=== PATIENT | male | born 1985 | race Caucasian/White ===

== ENCOUNTER 2017-02-27 11:12 | Emergency (ER) | payer BC ==
[2017-02-27] MEDS: DIPH,PERTUSS(ACELL),TET VAC/PF 0.5 ML DISP.SYRIN IM ONE (11:32)
[2017-02-27] MEDS ORDERED: traMADol HCL 50 MG TABLET ONE (11:44)
[2017-02-27] MEDS: traMADol HCL 50 MG TABLET PO ONE (11:49)
[2017-02-27 11:52] VITALS: BP 128/82
--- NOTE | 2017-02-27 11:52 | ED Physician Documentation ---
General Adult - HISTORIAN Historian: patient - HPI Stated Complaint: Laceration Chief Complaint: Laceration/Recheck/Suture Additional Information: aluminum case fell rt lat head w 2/3 cm lac. pt said bled excessive nurse cleaned up the blood Onset: hours (1) Timing: still present Severity: mild, moderate Further Comments: yes (cleansed w/ both shur clens and betadine exp for body approx w/ 3 stapoles) - ROS CONST: no problems EYES/ENT: none CVS/RESP: none GI/: none - PAST HX Past History: none Surgeries/Procedures: other (t and a) Immunizations: denies: UTD Allergies/Adverse Reactions: Allergies Allergy/AdvReac Type Severity Reaction Status Date / Time ceftriaxone sodium Allergy Severe Hives Verified 02/27/17 11:23 [From Rocephin] Home Medications: Ambulatory Orders Medication Instructions Recorded NK [NK] 02/27/17 - SOCIAL HX Smoking History: greater than 1 pack/day Alcohol Use: occasionally Drug Use: none - FAMILY HX Family History: No - VITAL SIGNS Vital Signs: Vital Signs Temp Pulse Resp BP Pulse Ox 98.2 F 65 18 135/91 96 02/27/17 11:24 02/27/17 11:24 02/27/17 11:24 02/27/17 11:24 02/27/17 11:24 - REVIEWED ASSESSMENTS Nursing Assessment Reviewed: Yes Vitals Reviewed: Yes Procedures Wound Location: head Wound's Depth, Shape: superficial, linear Wound Explored: no foreign body removed Betadine Prep?: Yes Wound Repaired With: lola (three-pt elected w/o anesthetic) Sterile Dressing Applied?: No ED Results Lab/Radiology - Orders Orders: ED Orders Category Date Time Status Diph,Pertuss(Acell),Tet Vac/Pf [Adacel] Med 02/27/17 11:41 Discontinued 0.5 ml IM .ONCE ONE traMADol HCL [Ultram] Med 02/27/17 11:43 Discontinued 50 mg PO NOW ONE General Adult Physical Exam - PHYSICAL EXAM GENERAL APPEARANCE: mild distress EENT: eye inspection normal NECK: normal inspection RESPIRATORY: no resp distress, chest non-tender, breath sounds normal CVS: reg rate & rhythm ABDOMEN: soft, non-tender SKIN: warm/dry, normal color. No: cyanosis, diaphoresis, jaundice, mottled EXTREMITIES: non-tender NEURO: oriented X3, motor nml, sensation nml, mood/affect nml, cognition normal Discharge Clincal Impression: Scalp laceration Referrals: Primary Doctor,No [Primary Care Provider] - 2 Days Home Medications: Ambulatory Orders NK [NK] 02/27/17 Comments: lola out 5-6 days Condition: Good Disposition: 01 HOME, SELF-CARE Decision to Admit: NO Decision Time: 11:51
== END 2017-02-27 11:51 | disposition home or self-care (01) ==
LOC: SUPCPDRO 11:12 → ED 11:12
DX: S01.01XA Laceration without foreign body of scalp, initial encounter (principal); X58.XXXA Exposure to other specified factors, initial encounter; Y93.9 Activity, unspecified; Y99.9 Unspecified external cause status
CPT/HCPCS: 12002; 90471; 90715; 99283

== ENCOUNTER 2017-03-07 14:49 | Emergency (ER) | payer BC ==
[2017-03-07] MEDS ORDERED: fentaNYL CITRATE/PF 100 MCG/ 2ML AMP IVP ONE ×2 (15:04→15:45)
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
[2017-03-07 16:08] VITALS: BP 119/91
== END 2017-03-07 16:02 | disposition home or self-care (01) ==
LOC: ED 14:49
DX: T22.212A Burn of second degree of left forearm, initial encounter (principal); T31.0 Burns involving less than 10% of body surface; T79.9XXA Unspecified early complication of trauma, initial encounter; X16.XXXA Contact with hot heating appliances, radiators and pipes, initial encounter; Y93.9 Activity, unspecified; Y99.9 Unspecified external cause status
CPT/HCPCS: J3010 ×2; 96374; 96376; 99283; S1016

== ENCOUNTER 2017-06-24 13:34 | Emergency (ER) | payer SELFPAY ==
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
[2017-06-24] MEDS: DEXAMETHASONE SOD PHOS 4 MG/ML VIAL IM ONE (14:19)
[2017-06-24] MEDS: ORPHENADRINE CITRATE 60 MG/2ML IM ONE (14:20)
[2017-06-24] MEDS: KETOROLAC TROMETHAMINE 30 MG/1ML VIAL IM ONE (14:20)
[2017-06-24 14:40] VITALS: BP 133/86
== END 2017-06-24 14:37 | disposition home or self-care (01) ==
LOC: ED 13:34
DX: M60.9 Myositis, unspecified (principal); S76.812A Strain of other specified muscles, fascia and tendons at thigh level, left thigh, initial encounter; S13.4XXA Sprain of ligaments of cervical spine, initial encounter; V87.7XXA Person injured in collision between other specified motor vehicles (traffic), initial encounter; Y93.9 Activity, unspecified; Y99.9 Unspecified external cause status
CPT/HCPCS: J1100; J1885; J2360; 96372; 99283

== ENCOUNTER 2017-07-02 11:45 | Outpatient (CLI) | payer BC ==
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
== END 2017-07-02 11:46 ==
LOC: LAB 11:45 → RAD 11:46
PROVIDERS: ATTEND Family Medicine
DX: M54.5 Low back pain (principal)
CPT/HCPCS: 72100

== ENCOUNTER 2017-12-30 12:17 | Outpatient (CLI) | payer OTHER ==
--- NOTE | 2017-12-30 18:50 | Diagnostic Imaging Report ---
LOBO MONROE [facility] [address] [facility] [address] [place] [address]. [id number] Report Submission Date: Dec 30, 2017 12:51:35 PM CDT Patient Study Name: CAIN BRANDT Date: Dec 30, 2017 12:30:08 PM CDT Modality Type: CT\SR Gender: M Description: CT BRAIN W/O CONTRAST : 83 Institution: [facility] Physician: LOBO MONROE Examination: CT head without contrast History: CT HEAD W/O, LEFT SIDED HEADACHES FOR SEVERAL MONTHS, WORSENING. NO KNOWN INJURY (Hx) Comparison exam: None available Technique: Noncontrast head CT protocol. Findings: Ventricles and sulci are appropriate for patient age. Cerebrocerebellar parenchyma demonstrates normal attenuation. No evidence for parenchymal hemorrhage. No evidence for mass or mass effect. No midline shift. No extra axial fluid collections. Partial visualization of the paranasal sinuses , mastoid air cells, orbits, skull and scalp without gross irregularity. Impression: No acute parenchymal process. No hemorrhage. Electronically signed on Dec 30, 2017 12:51:35 PM CDT by: Boyd CARRILLO
== END 2017-12-30 12:19 ==
LOC: RAD 12:17
PROVIDERS: ATTEND Family Medicine
DX: R51 Headache (principal)
CPT/HCPCS: 70450

== ENCOUNTER 2018-08-30 12:17 | Outpatient (CLI) | payer OTHER ==
[2018-08-30 13:39] LABS: CANNABINOIDS NEGATIVE ng/mL (< 50)
[2018-08-30 13:40] LABS: METHYLENEDIOXYMETHAMPHETAMINE NEGATIVE ng/mL (<500)
== END 2018-08-30 12:19 ==
LOC: LAB 12:17
PROVIDERS: ATTEND Family Medicine
DX: Z02.83 Encounter for blood-alcohol and blood-drug test (principal)
CPT/HCPCS: 80377; G0481

== ENCOUNTER 2019-08-16 07:33 | Emergency (ER) | payer OTHER ==
--- NOTE | 2019-08-16 07:38 | ED Physician Documentation ---
Chest Pain - HISTORIAN Historian: patient - HPI Stated Complaint: chest pain Chief Complaint: Chest Pain Onset: hours (2) Timing: sudden onset Duration: constant Last known Well Date: 08/16/19 Last Known Well Time: 05:00 Context: rest Severity: moderate Quality: pressure, burning, aching, sharp Chest Pain Radiation: other (he has pain on right chest wrapping around to back and then epigastric pain - Denies any recent injury ) Chest Pain Signs/Symptoms: nausea, diaphoresis Worsened By: change in position Relieved By: other (sitting/standing ) Further Comments: yes (He reports starting on Clindamycin a few days ago for a dental infection. He did take it last night around 11 pm. And he did have some allergy type symptoms he feels from working under a sink - he did take Benadryl after that and felt that helped those symptoms. He states about 5 am he woke with pain or pressure in his chest area (directs his pain is right chest sided pain and he has some pain that wraps around the back and epigastric) He states that he took 5 baby asprin due to worry it was a heart issue and he took Naproxen for pain that did not help. He notes nausea from pain. He denies any shortness of breath. He denies any injury) - ROS CONST: recent illness (dental abscess ) MS/LYMPH: none GI/: nausea EYES/ENT: none SKIN/ENDO: none NEURO/PSYCH: headache - PAST HX NE risk factors: no pertinent history DVT/PE Risk Factors: none TAD/AAA risk factors: none Neuro deficit: none GI disease: other (Gi "issues" ) Lung disease: none Immunizations: UTD Allergies/Adverse Reactions: Allergies Allergy/AdvReac Type Severity Reaction Status Date / Time ceftriaxone sodium Allergy Severe Hives Verified 08/16/19 08:00 [From Rocephin] Home Medications: Ambulatory Orders Medication Instructions Recorded Clindamycin HCl 300 mg PO QID 08/16/19 - SOCIAL HX Smoking History: cigarettes Alcohol Use: none Drug Use: none - FAMILY HX Family HX: none - VITAL SIGNS Vital Signs: Vital Signs Temp Pulse Resp BP Pulse Ox 133/86 06/24/17 14:39 - REVIEWED ASSESSMENTS Nursing Assessment Reviewed: Yes Vitals Reviewed: Yes Progress - Progress Progress: 0757: is up on side of bed stating pain is increasing and nausea is increasing - he is diaphoretic. DG 0808: post med he is feeling relief of pain and nausea - continues to have "pressure" which is also less DG 0820: Due to Rad machine will not do PE protocol with abd /pelvis DG 0920: discussion of results. He is aware. Will continue to monitor for return of pain. He is currently having "mild pressure" in his epigastric area he is more talkative and no diaphoresis DG Chest Pain Physical Exam - EXAM General Appearance: moderate distress EENT: eye inspection normal, ENT inspection normal, pharynx normal, no signs of dehydration, papilledema Respiratory: wheezes, rhonchi (RLL and LLL - improved with neb ) CVS: reg. rate & rhythm, no murmur, pulses equal Abdomen: soft, tenderness (epigastric area ) Skin: warm/dry Extremities: non-tender Neuro: oriented X3 Discharge Clincal Impression: Chest pain Qualifiers: Chest pain type: unspecified Qualified Code(s): R07.9 - Chest pain, unspecified Referrals: Panchito Henry MD [Primary Care Provider] - 2 Days Comments: 1. Augmentin 875/125 mg take 1 by mouth twice daily x 10 days 2. Prednisone 10 mg take 1 by mouth daily x 5 days 3. ProAir 90mcg 2 puffs by mouth every 4 hours as needed for cough 4. Omeprazole 20 mg take 1 by mouth daily 5. STOP SMOKING 6. Increase fluids 7. Follow up with PCP Tuesday 8. Return to ER for any increased concerns Condition: Stable Disposition: 01 HOME, SELF-CARE Decision to Admit: NO Date of Decison to Admit: 08/16/19 Decision Time: 09:43
[2019-08-16] MEDS ORDERED: 0.9 % SODIUM CHLORIDE 1,000 ML IV ONE (07:39)
[2019-08-16] MEDS ORDERED: IPRATROPIUM/ALBUTEROL SULFATE 3 ML AMPUL.NEB NEB ONE (07:39)
[2019-08-16] MEDS ORDERED: MAG HYDROX/ALUMINUM HYD/SIMETH 30 ML, Lidocaine 2% Viscous 15 ML PO ONE ×2 (07:40)
[2019-08-16] MEDS ORDERED: ONDANSETRON HCL/PF 4 MG/ 2ML VIAL ONE (07:50)
[2019-08-16] MEDS ORDERED: MORPHINE SULFATE 4 MG/ML VIAL IV ONE ×2 (07:52→08:05)
[2019-08-16] MEDS ORDERED: ONDANSETRON HCL/PF 4 MG/ 2ML VIAL IVP ONE (07:53)
[2019-08-16 08:26] LABS: BASOPHILS % 0.2 % (0.0-1.5); NEUTROPHILS # 11.7 # k/uL (1.4-7.7)
[2019-08-16 08:34] LABS: eGFR (Non-African) > 60
--- NOTE | 2019-08-16 08:56 | Diagnostic Imaging Report ---
PATIENT MR#: [id number] PATIENT PATIENT NAME: CAIN BRANDT DATE OF : 1985 REFERRING PHYSICIAN: Jenna Summers EXAM DATE: 08/16/2019 ACCESSION NUMBER: [id number] EXAM DESCRIPTION: CHEST 1VIEW Portable chest History: Chest pain Portable chest dated August 16 2019 demonstrates a normal cardiothymic silhouette. Pulmonary vascu larity is normal. Lungs are clear. Impression: No active disease. Read by: Dr. Meseret Neal Transcribed by: Transcribed Date: Electronically signed by: Dr. Meseret Neal Date signed: 08/16/2019 8:55:38 AM
--- NOTE | 2019-08-16 09:06 | Diagnostic Imaging Report ---
PATIENT MR#: [id number] PATIENT PATIENT NAME: CAIN BRANDT DATE OF : 1985 REFERRING PHYSICIAN: Jenna Summers EXAM DATE: 08/16/2019 ACCESSION NUMBER: [id number] EXAM DESCRIPTION: CT CAP W/ CT chest abdomen and pelvis with contrast Technique: Helically acquired images were obtained from the thoracic inlet to the pelvic floor follo wing IV but no oral contrast. Findings: The thoracic aorta is normal in caliber. There is no mediastinal or hilar lymphadenopathy . There is no pericardial or pleural effusion. There is mild posterior bibasilar atelectasis. Otherwise, the lung s are clear. There is no pneumothorax. The liver, spleen, adrenal glands, decompressed gallbladder, pancreas and kidneys are unremarkable. Small and large bowel loops are normal in caliber. The appendix cannot be visualized. There is a lack of intra-abdo matt fat. No secondary findings to suggest acute appendicitis are noted. The bladder, seminal vesicles and prosta te gland are normal. There is no free fluid in the abdomen or pelvis. No osseous abnormalities are noted. Impression: Mild posterior bibasilar atelectasis. Otherwise, no intrathoracic, intra-abdominal or intrapelvic abnormalities. The appendix cannot be id entified but there are no secondary findings to suggest acute appendicitis. Read by: Dr. Meseret Neal Transcribed by: Transcribed Date: Electronically signed by: Dr. Meseret Neal Date signed: 08/16/2019 9:05:38 AM
[2019-08-16] MEDS ORDERED: methylPREDNISolone SOD SUCC 125 MG/2 ML VIAL IVP ONE (09:11)
[2019-08-16] MEDS ORDERED: PANTOPRAZOLE SODIUM 40 MG in SODIUM CHLORIDE 0.9 % (FLUSH) 10 ML IVP ONE (09:19)
[2019-08-16 09:57] VITALS: BP 125/71
--- NOTE | 2019-08-17 11:16 | Diagnostic Imaging Report ---
[facility] [address] [employer] [facility] [address] Patient Name: CAIN BRANDT Referring Physician: Jenna Summers Date of : 1985 Gender: M Date of Service: 08/16/2019 Exam Requested: CT CAP W/ CT chest abdomen and pelvis with contrast Technique: Helically acquired images were obtained from the thoracic inlet to the pelvic floor following IV but no oral contrast. Findings: The thoracic aorta is normal in caliber. There is no mediastinal or hilar lymphadenopathy. There is no pericardial or pleural effusion. There is mild posterior bibasilar atelectasis. Otherwise, the lungs are clear. There is no pneumothorax. The liver, spleen, adrenal glands, decompressed gallbladder, pancreas and kidneys are unremarkable. Small and large bowel loops are normal in caliber. The appendix cannot be visualized. There is a lack of intra-abdominal fat. No secondary findings to suggest acute appendicitis are noted. The bladder, seminal vesicles and prostate gland are normal. There is no free fluid in the abdomen or pelvis. No osseous abnormalities are noted. Impression: Mild posterior bibasilar atelectasis. Otherwise, no intrathoracic, intra-abdominal or intrapelvic abnormalities. The appendix cannot be identified but there are no secondary findings to suggest acute appendicitis. NA
== END 2019-08-16 09:56 | disposition home or self-care (01) ==
LOC: ED 07:33
DX: R07.9 Chest pain, unspecified (principal)
CPT/HCPCS: 71045; 71260; 74177; 80053; 82150; 83605; 83690; 84484; 85025; 85379; 93005; 94640; 96361; 96374; 96375; 96376; 99283; 99285; A9270; J2270; J2405; J2930; J7030; Q9967; S1016